=== PATIENT | female | born 1955 | race American Indian/Alaskan Native ===

== ENCOUNTER 2020-10-23 21:12 | Inpatient (IN) | payer OTHER ==
[2020-10-23] MEDS ORDERED: ACETAMINOPHEN 500 MG TAB PO ONE (23:46)
[2020-10-24 00:46] LABS: Basophils # (Auto) 0.1 K/mm3 (0.0-0.1); Eosinophils # (Auto) 0.3 K/mm3 (0.0-0.4); Eosinophils % (Auto) 3.4 % (0.0-4.3); Hematocrit 34.1 % (30.3-42.9); Hemoglobin 11.4 gm/dl (10.1-14.3); Lymphocytes # (Auto) 2.7 K/mm3 (1.2-5.4); Lymphocytes % (Auto) 29.3 % (13.4-35.0); Mean Corpuscular HGB Conc 33 % (30-34); Mean Corpuscular Volume 92 fl (79-97); Monocytes # (Auto) 0.8 K/mm3 (0.0-0.8); Monocytes % (Auto) 9.1 % (0.0-7.3); Platelet Count 289 K/mm3 (140-440); Red Blood Count 3.72 M/mm3 (3.65-5.03)
[2020-10-24 00:48] LABS: Alanine Aminotransferase 25 units/L (7-56); Albumin 4.1 g/dL (3.9-5); Blood Urea Nitrogen 15 mg/dL (7-17); Calcium 9.4 mg/dL (8.4-10.2); Hemolysis Index 1
[2020-10-24 00:51] LABS: BUN/Creatinine Ratio 21
--- NOTE | 2020-10-24 05:05 | Vascular Lab Report ---
DUPLEX DOPPLER UPPER EXTREMITY VENOUS, LEFT INDICATION / CLINICAL INFORMATION: Left upper arm pain, swelling, ecchymosis. TECHNIQUE: Duplex doppler imaging was performed through the veins of the left upper extremity using venous compr ession and other maneuvers. COMPARISON: None available. FINDINGS: There is flow within left IJ and subclavian vein. Left cephalic vein does appear to have flow. There is echogenic portions of the cephalic vein inferiorly suggested. There is thrombus suggested within p ortions of the cephalic into the brachial vein and into the ulnar veins and brachial veins. IMPRESSION: Thrombus within the left distal cephalic vein, brachial veins and into the radial ulnar veins. IMPORTANT FINDING: Time of Communication (RN FIRST ASSIST/CDT): 400 Licensed Practitioner Receiving Report: Signer Name: Kaushal Matos MD Signed: 10/24/2020 5:00 AM Workstation Name: [id number]
--- NOTE | 2020-10-24 05:13 | Emergency Department Report ---
ED Extremity Problem HPI - General Chief complaint: Extremity Injury, Upper Stated complaint: POSS SYNCOPY Source: patient Mode of arrival: Ambulatory Limitations: No Limitations - History of Present Illness Initial comments: Patient is a 65-year-old -Senegalese female with a history of tth-himffaz-kklerffrg diabetes and hypertension who presents to the ED with complaint of acute onset persistent painful left upper arm and swelling with diffuse left ecchymosis for the last 2 days after she donated plasma 2 days ago. Patient states that the pain and the swelling has been worsening in the last 24 hours. Patient states that she is not on any blood thinner or aspirin. Patient denies chest pain, shortness of breath, dizziness, syncope, nausea and vomiting, fall, neck pain, back pain, abdominal pain, diaphoresis or heavy lifting. MD Complaint: extremity pain (Left upper arm pain and swelling), extremity swelling (left upper arm), other (diffuse left arm ecchymosis) -: Sudden, days(s) (2) Location: upper extremity (left upper arm) History of Same: No -: No fever, No associated dyspnea Radiation: proximal Severity scale (0 -10): 7 Quality: aching, sharp Consistency: constant Improves with: nothing Worsens with: walking, palpation Associated Symptoms: arthralgias, rash (Diffuse left upper arm ecchymosis). denies: chest pain, shortness of breath, fever, myalgias - Related Data Allergies Allergy/AdvReac Type Severity Reaction Status Date / Time No Known Allergies Allergy Unverified 10/23/20 22:34 ED Review of Systems ROS: Stated complaint: POSS SYNCOPY Other details as noted in HPI Constitutional: denies: chills, fever Eyes: denies: eye pain, eye discharge, vision change ENT: denies: ear pain, throat pain Respiratory: denies: cough, shortness of breath, wheezing Cardiovascular: denies: chest pain, palpitations Endocrine: no symptoms reported Gastrointestinal: denies: abdominal pain, nausea, vomiting, diarrhea Genitourinary: denies: urgency, dysuria, discharge Musculoskeletal: arthralgia (Left upper arm pain and swelling). denies: back pain, joint swelling Skin: other (Diffuse left upper arm ecchymosis). denies: rash, lesions Neurological: denies: headache, weakness, paresthesias Psychiatric: denies: anxiety, depression Hematological/Lymphatic: denies: easy bleeding, easy bruising ED Past Medical Hx - Past Medical History Previous Medical History?: Yes Hx Hypertension: Yes Hx Diabetes: Yes - Surgical History Past Surgical History?: Yes Additional Surgical History: partial hyst ED Physical Exam - General Limitations: No Limitations General appearance: alert, in no apparent distress - Head Head exam: Present: atraumatic, normocephalic, normal inspection - Eye Eye exam: Present: normal appearance, PERRL, EOMI Pupils: Present: normal accommodation - ENT ENT exam: Present: normal exam, normal orophraynx, mucous membranes moist, TM's normal bilaterally, normal external ear exam - Neck Neck exam: Present: normal inspection, full ROM. Absent: tenderness - Respiratory Respiratory exam: Present: normal lung sounds bilaterally. Absent: respiratory distress, wheezes, rales, rhonchi, chest wall tenderness, accessory muscle use - Cardiovascular Cardiovascular Exam: Present: regular rate, normal rhythm, normal heart sounds. Absent: systolic murmur, diastolic murmur, rubs, gallop - GI/Abdominal GI/Abdominal exam: Present: soft, normal bowel sounds. Absent: tenderness, guarding, rebound, hyperactive bowel sounds, hypoactive bowel sounds, organome davide - Extremities Exam Extremities exam: Present: normal inspection, full ROM, tenderness (Palpable left upper arm tenderness with swelling, diffuse left upper arm ecchymosis), normal capillary refill - Back Exam Back exam: Present: normal inspection, full ROM. Absent: tenderness, CVA tenderness (R), CVA tenderness (L), muscle spasm, paraspinal tenderness, vertebral tenderness - Neurological Exam Neurological exam: Present: alert, oriented X3, CN II-XII intact, normal gait, reflexes normal - Psychiatric Psychiatric exam: Present: normal affect, normal mood - Skin Skin exam: Present: warm, dry, intact, normal color. Absent: rash ED Medical Decision Making - Lab Data Result diagrams: 10/23/20 23:55 10/23/20 23:55 - Radiology Data Radiology results: report reviewed, image reviewed [facility] [address] [place] [address] Vascular Lab Report Signed Patient: PHILL RUIZ MR#: [id number] : 1955 Acct:[id number] Age/Sex: 65 / F ADM Date: 10/23/20 Loc: ED Attending Dr: Ordering Physician: ALESSANDRO GRIFFIN Date of Service: 10/23/20 Procedure(s): VL venous duplex UE LT Accession Number(s): [id number] cc: ALESSANDRO GRIFFIN DUPLEX DOPPLER UPPER EXTREMITY VENOUS, LEFT INDICATION / CLINICAL INFORMATION: Left upper arm pain, swelling, ecchymosis. TECHNIQUE: Duplex doppler imaging was performed through the veins of the left upper extremity using venous compression and other maneuvers. COMPARISON: None available. FINDINGS: There is flow within left IJ and subclavian vein. Left cephalic vein does appear to have flow. There is echogenic portions of the cephalic vein inferiorly suggested. There is thrombus suggested within portions of the cephalic into the brachial vein and into the ulnar veins and brachial veins. IMPRESSION: Thrombus within the left distal cephalic vein, brachial veins and into the radial ulnar veins. IMPORTANT FINDING: Time of Communication (MANAGER FINANCE/CDT): 400 Licensed Practitioner Receiving Report: Signer Name: Kaushal Matos MD Signed: 10/24/2020 5:00 AM Workstation Name: [id number] Transcribed By: CW Dictated By: SONNY MATOS MD Electronically Authenticated By: SONNY MATOS MD Signed Date/Time: 10/24/20499 DD/ 0454 TD/TT: - Medical Decision Making This is a 65-year-old -Senegalese female with a history of hvh-ucjojur-jdrsigxnu diabetes and hypertension who presents to the ED with complaint of acute onset persistent painful left upper arm and swelling with diffuse left ecchymosis for the last 2 days after she donated plasma 2 days ago. Patient states that the pain and the swelling has been worsening in the last 24 hours. Patient states that she is not on any blood thinner or aspirin. In the ED, patient is alert and oriented x3 and is not in any distress, anxious and appears to be in pain. Patient was treated for pain with Tylenol. Lab test results were reviewed and are all nonactionable. Left arm Doppler ultrasound showed thrombus within the left distal cephalic vein, brachial veins and into the radial ulnar veins. These findings were discussed with the ED attending physician Dr. Antoine Light who advised the patient be admitted to the hospital by the hospitalist physician Dr. Jacobs. Dr. Light advised the patient be star hector on heparin drip pending admission. I therefore paged and discussed the patient's case with Dr. Jacobs the hospitalist physician on-call who admitted the patient to the hospital. - Differential Diagnosis DVT; muscle strain; muscle spasm; arm contusion Critical care attestation.: If time is entered above; I have spent that time in minutes in the direct care of this critically ill patient, excluding procedure time. ED Disposition Clinical Impression: Deep vein thrombosis of left upper extremity Qualifiers: Affected thrombotic vein of extremity: brachial Chronicity: acute Qualified Code(s): I82.622 - Acute embolism and thrombosis of deep veins of left upper extremity Disposition: 02 SHORT TERM HOSPITAL Is pt being admited?: Yes Does the pt Need Aspirin: No Condition: Stable Instructions: Venous Thromboembolism Prevention, Deep Vein Thrombosis Time of Disposition: 05:17 Print Language: NICARAGUAN
[2020-10-24] MEDS ORDERED: HEPARIN 10,000 UNITS/10 ML VIAL IV PRN (05:20)
[2020-10-24] MEDS ORDERED: ACETAMINOPHEN 325 MG TAB PO PRN ×2 (05:22→05:43)
[2020-10-24] MEDS ORDERED: ONDANSETRON 4 MG/2 ML INJ IV PRN ×2 (05:22→05:43)
[2020-10-24] MEDS ORDERED: ALBUTEROL 2.5 MG/3 ML NEBU IH PRN (05:43)
[2020-10-24] MEDS ORDERED: oxyCODONE /ACETAMINOPHEN 5-325MG TAB PO PRN (05:43)
[2020-10-24] MEDS ORDERED: DEXTROSE 50% IN WATER (25GM) 50 ML SYRINGE IV PRN (05:43)
--- NOTE | 2020-10-24 05:51 | History and Physical Report ---
History of Present Illness Date of examination: 10/24/20 Date of admission: 10/24/20 Chief complaint: Left upper extremity pain and swelling History of present illness: 65-year-old -[place] female with a history of bzx-gtlknbj-vlyqkcaqo diabetes and hypertension who presents to the ED with complaint of acute onset persistent painful left upper arm and swelling with diffuse left ecchymosis for the last 2 days after she donated plasma 2 days ago. Patient states that the pain and the swelling has been worsening in the last 24 hours. Patient states that she is not on any blood thinner or aspirin. Patient denies chest pain, shortness of breath, dizziness, syncope, nausea and vomiting, fall, neck pain, back pain, abdominal pain, diaphoresis or heavy lifting. In the emergency room patient is found to have left upper extremity DVT Past History Past Medical History: diabetes, hypertension Medications and Allergies Allergies Allergy/AdvReac Type Severity Reaction Status Date / Time No Known Allergies Allergy Verified 10/24/20 05:28 Active Meds: Active Medications Acetaminophen (Acetaminophen 325 Mg Tab) 650 mg PO Q4H PRN PRN Reason: Pain MILD(1-3)/Fever >100.5/ABBOTT Acetaminophen (Acetaminophen 325 Mg Tab) 650 mg PO Q4H PRN PRN Reason: Pain MILD(1-3)/Fever >100.5/ABBOTT Heparin Sodium (Porcine) (Heparin 10,000 Units/10 Ml Vial) 3,800 unit 40 unit/kg (3800 unit) IV Q6H PRN PRN Reason: Anti-Xa Assay < 0.1 units/ml Ondansetron HCl (Ondansetron 4 Mg/2 Ml Inj) 4 mg IV Q8H PRN PRN Reason: Nausea And Vomiting Sodium Chloride (Sodium Chloride 0.9% 10 Ml Flush Syringe) 10 ml IV BID PEREZ Sodium Chloride (Sodium Chloride 0.9% 10 Ml Flush Syringe) 10 ml IV PRN PRN PRN Reason: LINE FLUSH Review of Systems All systems: negative Musculoskeletal: other (Left upper extremity pain and swelling and ecchymosis) Exam - Constitutional Vitals: Temp Pulse Resp BP Pulse Ox 98.7 F 71 18 196/79 98 10/23/20 22:37 10/23/20 22:37 10/23/20 22:37 10/23/20 22:37 10/23/20 22:37 General appearance: Present: no acute distress, well-nourished - EENT Eyes: Present: PERRL ENT: hearing intact, clear oral mucosa - Neck Neck: Present: supple, normal ROM - Respiratory Respiratory effort: normal Respiratory: bilateral: CTA - Cardiovascular Heart Sounds: Present: S1 & S2. Absent: rub, click - Extremities Extremities: pulses symmetrical, No edema Peripheral Pulses: within normal limits - Abdominal General gastrointestinal: Present: soft, non-tender, non-distended, normal bowel sounds Female genitourinary: Present: normal - Integumentary Integumentary: Present: clear, warm, dry - Musculoskeletal Musculoskeletal: strength equal bilaterally, other (Left upper extremity pain swelling and ecchymosis) - Psychiatric Psychiatric: appropriate mood/affect, intact judgment & insight - Neurologic Neurologic: CNII-XII intact, moves all extremities Results - Labs CBC & Chem 7: 10/23/20 23:55 10/23/20 23:55 Labs: Laboratory Last Values WBC 9.2 K/mm3 (4.5-11.0) 10/23/20 23:55 RBC 3.72 M/mm3 (3.65-5.03) 10/23/20 23:55 Hgb 11.4 gm/dl (10.1-14.3) 10/23/20 23:55 Hct 34.1 % (30.3-42.9) 10/23/20 23:55 MCV 92 fl (79-97) 10/23/20 23:55 MCH 31 pg (28-32) 10/23/20 23:55 MCHC 33 % (30-34) 10/23/20 23:55 RDW 14.0 % (13.2-15.2) 10/23/20 23:55 Plt Count 289 K/mm3 (140-440) 10/23/20 23:55 Lymph % (Auto) 29.3 % (13.4-35.0) 10/23/20 23:55 Rich % (Auto) 9.1 % (0.0-7.3) H 10/23/20 23:55 Eos % (Auto) 3.4 % (0.0-4.3) 10/23/20 23:55 Baso % (Auto) 1.0 % (0.0-1.8) 10/23/20 23:55 Lymph # (Auto) 2.7 K/mm3 (1.2-5.4) 10/23/20 23:55 Rich # (Auto) 0.8 K/mm3 (0.0-0.8) 10/23/20 23:55 Eos # (Auto) 0.3 K/mm3 (0.0-0.4) 10/23/20 23:55 Baso # (Auto) 0.1 K/mm3 (0.0-0.1) 10/23/20 23:55 Seg Neutrophils % 57.2 % (40.0-70.0) 10/23/20 23:55 Seg Neutrophils # 5.2 K/mm3 (1.8-7.7) 10/23/20 23:55 Sodium 141 mmol/L (137-145) 10/23/20 23:55 Potassium 4.1 mmol/L (3.6-5.0) 10/23/20 23:55 Chloride 105.2 mmol/L (98-107) 10/23/20 23:55 Carbon Dioxide 28 mmol/L (22-30) 10/23/20 23:55 Anion Gap 12 mmol/L 10/23/20 23:55 BUN 15 mg/dL (7-17) 10/23/20 23:55 Creatinine 0.7 mg/dL (0.6-1.2) 10/23/20 23:55 Estimated GFR > 60 ml/min 10/23/20 23:55 BUN/Creatinine Ratio 21 % 10/23/20 23:55 Glucose 165 mg/dL (65-100) H 10/23/20 23:55 Calcium 9.4 mg/dL (8.4-10.2) 10/23/20 23:55 Total Bilirubin 0.20 mg/dL (0.1-1.2) 10/23/20 23:55 AST 24 units/L (5-40) 10/23/20 23:55 ALT 25 units/L (7-56) 10/23/20 23:55 Alkaline Phosphatase 82 units/L (35-129) 10/23/20 23:55 Total Protein 6.1 g/dL (6.3-8.2) L 10/23/20 23:55 Albumin 4.1 g/dL (3.9-5) 10/23/20 23:55 Albumin/Globulin Ratio 2.1 % 10/23/20 23:55 Assessment and Plan VTE prophylaxis?: Chemical Plan of care discussed with patient/family: Yes - Patient Problems (1) Deep vein thrombosis of left upper extremity Current Visit: Yes Status: Acute Qualifiers: Affected thrombotic vein of extremity: brachial Chronicity: acute Qualified Code(s): I82.622 - Acute embolism and thrombosis of deep veins of left upper extremity Plan to address problem: Admit the patient to the medical floor. Put the patient on oxygen per nasal catheter per minute albuterol via nebulizer 2.5 mg every 4 hours as needed. Heparin drip as per protocol. Consult vascular surgeon if needed (2) Diabetes Current Visit: Yes Status: Acute Plan to address problem: 1800 kcal ADA diet. Humalog sliding scale moderate dose coverage with Accu-Chek before meals and at bedtime. Diabetic education. Recheck BMP in the morning (3) Hypertension Current Visit: Yes Status: Acute Plan to address problem: Hydralazine 10 mg IV every 6 hours as needed. We will monitor the patient blood pressure closely (4) DVT prophylaxis Current Visit: Yes Status: Acute Plan to address problem: Heparin drip as per protocol for DVT prophylaxis. Pepcid 20 mg p.o. twice daily for GI prophylaxis. Patient is a full code
[2020-10-24 05:58] LABS: Hematocrit 34.9 % (30.3-42.9); Hemoglobin 11.8 gm/dl (10.1-14.3)
[2020-10-24 05:59] LABS: INR 0.82 (0.87-1.13)
[2020-10-24 06:00] LABS: Partial Thromboplastin Time 27.4 Sec. (24.2-36.6)
[2020-10-24 06:12] LABS: INR 0.82 (0.87-1.13)
[2020-10-24 06:13] LABS: Partial Thromboplastin Time 26.9 Sec. (24.2-36.6)
[2020-10-24] MEDS ORDERED: HEPARIN/ 0.45% NACL DRIP 25,000 UNIT/500 ML BAG IV SCH (14:00)
--- NOTE | 2020-10-24 18:14 | Vascular Lab Report ---
DUPLEX DOPPLER UPPER EXTREMITY VENOUS, LEFT INDICATION: dvt. Left upper extremity pain and swelling TECHNIQUE: Duplex doppler imaging was performed through the veins of the left upper extremity using venous compr ession and other maneuvers. COMPARISON: None available. FINDINGS: Left Internal Jugular vein: Negative. Left Subclavian vein: Negative. Left Axillary vein: Negative. Left Brachial vein: Negative. Left Forearm veins: Negative. Left Basilic vein (superficial): Negative. Additional findings: [None.] IMPRESSION: 1. No sonographic evidence for DVT in the left upper extremity. Signer Name: Nuria Blum MD Signed: 10/24/2020 6:09 PM Workstation Name: [id number]
[2020-10-24] MEDS: HYDROmorphone 1 MG/1 ML INJ IV PRN (20:03)
[2020-10-24] MEDS: INSULIN LISPRO 100 UNIT/ML SUB-Q SCH ×2 (23:31→23:47)
[2020-10-24] MEDS: FAMOTIDINE 20 MG TAB PO SCH (23:48)
[2020-10-25 02:19] LABS: Basophils # (Auto) 0.1 K/mm3 (0.0-0.1); Basophils % (Auto) 1.2 % (0.0-1.8); Eosinophils # (Auto) 0.3 K/mm3 (0.0-0.4); Eosinophils % (Auto) 4.1 % (0.0-4.3); Hematocrit 36.7 % (30.3-42.9); Lymphocytes % (Auto) 28.8 % (13.4-35.0); Mean Corpuscular HGB Conc 33 % (30-34); Mean Corpuscular Volume 93 fl (79-97); Monocytes # (Auto) 0.7 K/mm3 (0.0-0.8); Monocytes % (Auto) 10.1 % (0.0-7.3); Platelet Count 292 K/mm3 (140-440); Red Blood Count 3.93 M/mm3 (3.65-5.03); Red Cell Distribution Width 14.2 % (13.2-15.2)
[2020-10-25 02:31] LABS: INR 0.84 (0.87-1.13); Partial Thromboplastin Time 25.9 Sec. (24.2-36.6)
[2020-10-25 02:44] LABS: Blood Urea Nitrogen 11 mg/dL (7-17); Calcium 9.6 mg/dL (8.4-10.2); Hemolysis Index 4
[2020-10-25 02:51] LABS: BUN/Creatinine Ratio 18
[2020-10-25] MEDS: HYDROmorphone 1 MG/1 ML INJ IV PRN ×2 (03:15→08:02)
[2020-10-25] MEDS: INSULIN LISPRO 100 UNIT/ML SUB-Q SCH ×2 (07:30→11:30)
[2020-10-25] MEDS: FAMOTIDINE 20 MG TAB PO SCH (10:05)
--- NOTE | 2020-10-25 11:16 | Discharge Summary ---
Providers - Providers Date of Admission: 10/24/20 05:43 Attending physician: INGRID MAK MD 10/24/20 05:43 Consult to Dietitian/Nutrition [CONS] Routine Physician Instructions: Reason For Exam: Reason for Consult: Diet education Primary care physician: FAREED GARCIA Hospitalization Condition: Stable Hospital course: 65-year-old -Sudanese female with a history of ydp-qgreglc-xsdvddjyd diabetes and hypertension who presents to the ED with complaint of acute onset persistent painful left upper arm and swelling with diffuse left ecchymosis for the last 2 days after she donated plasma 2 days ago. Patient states that the pain and the swelling has been worsening in the last 24 hours. Patient states that she is not on any blood thinner or aspirin. Patient denies chest pain, shortness of breath, dizziness, syncope, nausea and vomiting, fall, neck pain, back pain, abdominal pain, diaphoresis or heavy lifting. In the emergency room patient is found to have left upper extremity DVT (1) Deep vein thrombosis of left upper extremity Current Visit: Yes Status: Acute Qualifiers: Affected thrombotic vein of extremity: brachial Chronicity: acute Qualified Code(s): I82.622 - Acute embolism and thrombosis of deep veins of left upper extremity Plan to address problem: Admit the patient to the medical floor. Put the patient on oxygen per nasal catheter per minute albuterol via nebulizer 2.5 mg every 4 hours as needed. Heparin drip as per protocol. Consult vascular surgeon if needed (2) Diabetes Current Visit: Yes Status: Acute Plan to address problem: 1800 kcal ADA diet. Humalog sliding scale moderate dose coverage with Accu-Chek before meals and at bedtime. Diabetic education. Recheck BMP in the morning (3) Hypertension Current Visit: Yes Status: Acute Plan to address problem: Hydralazine 10 mg IV every 6 hours as needed. We will monitor the patient blood pressure closely repeat ultrasound was negative patient with echmosis that was spreeding with heparin drip will discontinue Disposition: 01 HOME / SELF CARE / HOMELESS Exam - Constitutional Vitals: Temp Pulse Resp BP Pulse Ox 98.7 F 60 12 150/61 99 10/23/20 22:37 10/24/20 18:46 10/24/20 18:46 10/24/20 18:46 10/25/20 10:25 Plan Activity: advance as tolerated, fall precautions Diet: low fat Special Instructions: record daily weights, record daily BP diary Plan of Treatment: Continue home medications Follow up with: FAREED GARCIA MD [Primary Care Provider] - 7 Days MEAGHAN RITCHIE MD [Staff Physician] - 7 Days
--- NOTE | 2020-10-25 13:38 | Vascular Lab Report ---
DUPLEX DOPPLER UPPER EXTREMITY VENOUS, LEFT INDICATION / CLINICAL INFORMATION: left upper ext ultrasound.. TECHNIQUE: Duplex doppler imaging was performed through the veins of the left upper extremity using venous compr ession and other maneuvers. COMPARISON: 10/24/2020 FINDINGS: LEFT INTERNAL JUGULAR VEIN: Negative. LEFT SUBCLAVIAN VEIN: Negative. LEFT AXILLARY VEIN: Negative. LEFT BRACHIAL VEIN: Negative. LEFT FOREARM VEINS: Negative. LEFT BASILIC VEIN (SUPERFICIAL): Negative. ADDITIONAL FINDINGS: None. IMPRESSION: 1. No sonographic evidence for DVT. Signer Name: Evelio Jay MD Signed: 10/25/2020 1:33 PM Workstation Name: [id number]
[2020-10-25] MEDS ORDERED: LISINOPRIL 20 MG TAB PO ONE (16:37)
[2020-10-25 17:36] VITALS: BP 130/67
== END 2020-10-25 18:00 | disposition home or self-care (01) | DRG 301 ==
LOC: ED 21:12 → 4A 10-24 05:43 → 3A 10-25 00:09
PROVIDERS: ADMIT Hospitalist; ATTEND Internal Medicine
DX: I82.622 Acute embolism and thrombosis of deep veins of left upper extremity (principal); E11.9 Type 2 diabetes mellitus without complications; I10 Essential (primary) hypertension
CPT/HCPCS: 36415; 80048; 80053; 82962; 85014; 85018; 85025; 85049; 85610; 85730; G0378; J1170; J1644